=== PATIENT | male | born 1995 | race Caucasian/White ===

== ENCOUNTER 2017-05-29 19:50 | Emergency (ER) | payer BC, OTHER ==
[~2017-05-29] VITALS: Ht 185.4 cm; Wt 75.0 kg
[~2017-05-29 19:50] MED LIST: MEDIDATE; PERCOCET 325 MG1 TA2 PO; ZOFRAN ODT8 MG PO
[2017-05-29 19:57] VITALS: TEMP 98.2
[2017-05-29 21:24] VITALS: BP 148/78
[2017-05-29 21:40] VITALS: PULSE 134
== END 2017-05-29 21:40 | disposition home or self-care (01) ==
LOC: COL.ER 19:50
DX: S09.90XA Unspecified injury of head, initial encounter (principal); S01.81XA Laceration without foreign body of other part of head, initial encounter; F90.9 Attention-deficit hyperactivity disorder, unspecified type; F12.90 Cannabis use, unspecified, uncomplicated; Z90.89 Acquired absence of other organs; Y04.0XXA Assault by unarmed brawl or fight, initial encounter; Y92.511 Restaurant or cafe as the place of occurrence of the external cause

== ENCOUNTER 2020-02-02 21:33 | Emergency (ER) | payer OTHER, BC ==
[~2020-02-02] VITALS: Ht 185.4 cm; Wt 77.3 kg
[2020-02-02 21:37] VITALS: TEMP 97.8
[2020-02-03 00:26] VITALS: BP 128/83; PULSE 81
== END 2020-02-03 00:26 | disposition home or self-care (01) ==
LOC: COL.ER 21:33
DX: S60.221A Contusion of right hand, initial encounter (principal); W19.XXXA Unspecified fall, initial encounter; Y92.009 Unspecified place in unspecified non-institutional (private) residence as the place of occurrence of the external cause